=== PATIENT | female | born 1960 | race Two or more races ===

== ENCOUNTER → 2016-04-13 | Outpatient (CLI) | payer MEDICARE ==
[2016-04-13 12:51] LABS: Basophils % (A) 0 %; CH 29.3; CHCM 32.5; Eosinophils # (A) 0.2 k/uL (0-0.7); Eosinophils % (A) 3 %; HCT 37.8 % (34.0-46.0); HDW 2.84; HGB 11.9 gm/dL (11.4-16.0); Luc # (Auto) 0.08; Luc % (Auto) 1; Lymphocytes # (A) 1.7 k/uL (1.0-4.8); Lymphocytes % (A) 24 %; MCH 28.6 pg (25.0-35.0); MCHC 31.5 g/dL (31.0-37.0); MCV 90.6 fL (80.0-100.0); Mean Platelet Volume 7.2; Monocytes # (A) 0.4 k/uL (0-1.0); Monocytes % (A) 5 %; Neutrophils # (A) 4.6 k/uL (1.3-7.7); Neutrophils % (A) 66 %; RBC 4.17 m/uL (3.80-5.40); RDW 13.5 % (11.5-15.5); WBC 6.9 k/uL (3.8-10.6); WBC (Perox) 7.34
[2016-04-13 13:09] LABS: ALT 30 U/L (9-52); AST 23 U/L (14-36); Alkaline Phosphatase 75 U/L (38-126); Anion Gap 12 mmol/L; Blood Urea Nitrogen 14 mg/dL (7-17); Calcium 9.6 mg/dL (8.4-10.2); Carbon Dioxide 23 mmol/L (22-30); Chloride 109 mmol/L (98-107); Cholesterol 154 mg/dL (<200); Glucose 104 mg/dL (74-99); HDL Cholesterol 68 mg/dL (40-60); Non-African American GFR(MDRD) >60 (>60 ml/min/1.73 sqM); Potassium 4.4 mmol/L (3.5-5.1); Sodium 144 mmol/L (137-145); Total Bilirubin 0.6 mg/dL (0.2-1.3); Total Protein 7.1 g/dL (6.3-8.2); Triglycerides 142 mg/dL (<150)
[2016-04-13 14:30] LABS: Appearance,Urine Cloudy (Clear); Bacteria,Urine Rare /hpf; Bilirubin,Urine Negative (Negative); Glucose,Urine (UA) Negative (Negative); Ketones,Urine Negative (Negative); Leukocyte Esterase,Urine Moderate (Negative); Mucus,Urine Rare /hpf; Nitrite,Urine Negative (Negative); Particle Count 5381; Protein,Urine Negative (Negative); Squamous Epithelial Cell,Urine 2 /hpf (0-4); UA Billing (MACRO vs. MICRO) MICRO; Urobilinogen,Urine <2.0 mg/dL (<2.0); WBC,Urine 16 /hpf (0-5)
--- NOTE | 2016-04-16 10:56 | MM ---
Reason for exam: screening (asymptomatic). Last mammogram was performed 2 years and 7 months ago. History: Patient is postmenopausal. Benign left mammotome panel of the left breast, August 15, 2011. Benign right mammotome panel of the right breast, August 29, 2007. Physical Findings: A clinical breast exam by your physician is recommended on an annual basis and results should be correlated with mammographic findings. MG Screening Mammo w CAD Bilateral CC and MLO view(s) were taken. Prior study comparison: September 09, 2013, left breast MG work up mamm w CAD LT. August 26, 2013, bilateral MG screening mammo w CAD. July 25, 2011, bilateral digital screening mammo w/CAD. There are scattered fibroglandular densities. Previous mammotome biopsy in the right and left breast. There is chronic nodularity in the left breast. Nodular focal asymmetry right breast 9 o'clock subareolar position maybe new. ASSESSMENT: Incomplete: need additional imaging evaluation, BI-RAD 0 RECOMMENDATION: Special view mammogram of the right breast. If lesion persists on supplemental views, image directed ultrasound is recommended. [facility] will attempt to contact patient to return for supplemental views and ultrasound if indicated.
== END | disposition home or self-care (01) ==
LOC: RADMAMWWP 12:02
PROVIDERS: ATTEND Internal Medicine
DX: Z12.31 Encounter for screening mammogram for malignant neoplasm of breast (principal); E11.9 Type 2 diabetes mellitus without complications; E78.5 Hyperlipidemia, unspecified; I10 Essential (primary) hypertension; E55.9 Vitamin D deficiency, unspecified
CPT/HCPCS: 80061; 80053; 85025; 81001; 82306; 82043; 36415; G0202

== ENCOUNTER → 2016-04-20 | Outpatient (CLI) | payer MEDICARE ==
--- NOTE | 2016-04-23 06:54 | MM ---
Reason for exam: additional evaluation requested from abnormal screening. Last mammogram was performed less than 1 month ago. History: Patient is postmenopausal. Benign left mammotome panel of the left breast, August 15, 2011. Benign right mammotome panel of the right breast, August 29, 2007. Physical Findings: Nurse did not find any significant physical abnormalities on exam. MG Work Up Mamm w CAD RT LM, CC, and MLO view(s) were taken of the right breast. Prior study comparison: April 13, 2016, bilateral MG screening mammo w CAD. September 09, 2013, left breast MG work up mamm w CAD LT. Finding: There are typically benign round, grouped/clustered calcifications in the right breast, stable from 2014. Nodules does not definitively persist. These results were verbally communicated with the patient and result sheet given to the patient on 04/20/16. ASSESSMENT: Benign, BI-RAD 2 RECOMMENDATION: Return to routine screening mammogram schedule for both breasts.
== END | disposition home or self-care (01) ==
LOC: RADMAMWWP 14:15
PROVIDERS: ATTEND Internal Medicine
DX: R92.8 Other abnormal and inconclusive findings on diagnostic imaging of breast (principal)

== ENCOUNTER → 2016-09-11 | Outpatient (CLI) | payer MEDICARE ==
--- NOTE | 2016-09-14 13:21 | CONS ---
REASON FOR CONSULTATION: Sleep apnea. This 55-year-old female patient was diagnosed having obstructive sleep apnea back in [address] Marin. At that time, the patient had an AHI of 18. Her latest CPAP titration was in 2012 and at that time the patient was given a CPAP pressure of 13 cm of water. Note that the patient use to weigh 265 pounds back then. Unfortunately, the patient was unable to continue with her CPAP treatment. At one point, she became uncomfortable and she was not able to tolerate the treatment and she did not seek any further help and she ended up quitting her treatment. Recently, she has had several CVA's and this has resulted in significant right-sided weakness. She was advised by her neurologist to come in for a sleep apnea re-evaluation in concentration for treatment, if needed. She is snoring for now. She is waking up tired. She is having difficulties with memory and concentration and this can be potentially a complication of a stroke. She is not waking up gasping for air or choking. No grinding of the teeth. No anxiety or panic attacks at night-time. She goes to bed pretty late at 4 a.m. and she wakes up around 10 a.m. in the morning and she is averaging around 6 hours of sleep. She is not utilizing any form of CPAP therapy at this point. PAST MEDICAL HISTORY: 1. CVA x2 with right-sided weakness. 2. Diabetes mellitus. 3. GERD. 4. History of obesity with previous lap band insertion and removal. 5. Varicose vein. 6. Hyperlipidemia. 7. Obstructive sleep apnea, details discussed above. 8. Carotid artery disease, bilateral. Surgical history includes carotid endarterectomy x2 bilateral, hysterectomy, bladder sling surgery with ( ) cuff repair. Allergies are to PENICILLIN, CIPRO, AMOXICILLIN and BACTRIM. Outpatient medication list includes Victoza 1.2 mg q. day, aspirin 325 q. day, Plavix 75 q. day, metformin 1000 mg b.i.d., lisinopril 20 mg p.o. q. day, Zocor 80 mg p.o. q. day, Nuedexta 20/10 one tablet a day, pantoprazole 40 mg p.o. q. day. SOCIAL HISTORY: The patient is an ex-smoker. No history of alcohol and no history of IV drugs. FAMILY HISTORY: Negative for sleep apnea. REVIEW OF SYSTEMS: A 12-point review of systems was done and the positive points as mentioned above in the history of present illness. BP is 112/67, pulse 84, respirations 16, temperature is 98.0, saturation 99% on room air. Weight is 234, height is 73, and neck diameter is 14-1/2 inches. GENERAL APPEARANCE: Calm and comfortable. HEENT: Mallampati class 4. There is no goiter or neck masses. LUNGS: Clear to auscultation. Heart sounds are regular rate and rhythm, normal S1, S2, no S3, no murmurs. ABDOMEN: Soft, nontender, no organomegaly. EXTREMITIES: No edema, cyanosis or clubbing. NEUROLOGICALLY: There is obvious features on the right involving the right upper and right lower extremity and the patient is having difficulty with mobility and gait due to her previous stroke and right-sided weakness. IMPRESSION: 1. Obstructive sleep apnea. The patient is coming in for a re-evaluation. Original diagnosis was done in 2005 and the patient had an AHI of 18 and she failed CPAP therapy. Her latest hydration was done in 2012 and at that time the patient was given CPAP pressure of 11 cm of water. Since that time, the patient has lost approximately 30 pounds and she has had recurrent strokes. She will deserve a re-evaluation in regards to ongoing presence and severity of sleep apnea. This will also determine if she will need any further treatment. 2. Diabetes mellitus. 3. History of obesity, status post lap band insertion and removal. 4. Hyperlipidemia. 5. Carotid artery disease, bilateral, status post endarterectomy. PLAN: Will set up this patient for another screening polysomnogram. This will address the presence of any residual obstructive sleep apnea and the varices and based on that, will decide if further treatment is warranted. KEITH
== END | disposition home or self-care (01) ==
LOC: SLEEP 15:40
PROVIDERS: ATTEND Internal Medicine Critical Care Medicine
DX: G47.33 Obstructive sleep apnea (adult) (pediatric) (principal); E11.9 Type 2 diabetes mellitus without complications; E78.5 Hyperlipidemia, unspecified; I25.10 Atherosclerotic heart disease of native coronary artery without angina pectoris; I63.9 Cerebral infarction, unspecified; Z79.82 Long term (current) use of aspirin; Z79.02 Long term (current) use of antithrombotics/antiplatelets; Z79.899 Other long term (current) drug therapy; Z88.0 Allergy status to penicillin; Z88.1 Allergy status to other antibiotic agents; Z88.2 Allergy status to sulfonamides; Z98.890 Other specified postprocedural states
CPT/HCPCS: 99211

== ENCOUNTER → 2016-10-04 | Outpatient (CLI) | payer MEDICARE ==
[2016-10-04 13:24] VITALS: BMI 39.6
[2016-10-04 14:56] LABS: Basophils % (A) 0 %; CH 29.8; CHCM 32.8; Eosinophils # (A) 0.2 k/uL (0-0.7); Eosinophils % (A) 2 %; HCT 37.3 % (34.0-46.0); HDW 3.02; HGB 12.4 gm/dL (11.4-16.0); Luc # (Auto) 0.11; Luc % (Auto) 1; Lymphocytes # (A) 1.6 k/uL (1.0-4.8); Lymphocytes % (A) 16 %; MCH 30.3 pg (25.0-35.0); MCHC 33.1 g/dL (31.0-37.0); MCV 91.3 fL (80.0-100.0); Mean Platelet Volume 7.1; Monocytes # (A) 0.3 k/uL (0-1.0); Monocytes % (A) 3 %; Neutrophils # (A) 7.6 k/uL (1.3-7.7); Neutrophils % (A) 78 %; RBC 4.09 m/uL (3.80-5.40); WBC 9.7 k/uL (3.8-10.6); WBC (Perox) 9.96
[2016-10-04 15:00] LABS: ALT 28 U/L (9-52); AST 22 U/L (14-36); Alkaline Phosphatase 79 U/L (38-126); Anion Gap 10 mmol/L; Blood Urea Nitrogen 16 mg/dL (7-17); Calcium 9.4 mg/dL (8.4-10.2); Carbon Dioxide 25 mmol/L (22-30); Chloride 110 mmol/L (98-107); Cholesterol 148 mg/dL (<200); Glucose 96 mg/dL (74-99); HDL Cholesterol 63 mg/dL (40-60); Non-African American GFR(MDRD) >60 (>60 ml/min/1.73 sqM); Potassium 4.7 mmol/L (3.5-5.1); Sodium 145 mmol/L (137-145); Total Bilirubin 0.4 mg/dL (0.2-1.3); Total Protein 7.1 g/dL (6.3-8.2); Triglycerides 150 mg/dL (<150)
[2016-10-04 15:47] LABS: Hepatitis C Virus IgG Ab Negative (Negative); Hepatitis C Virus IgG Index 0.01
== END ==
LOC: MNTWWP 12:55
PROVIDERS: ATTEND Internal Medicine
DX: E66.01 Morbid (severe) obesity due to excess calories (principal); E78.5 Hyperlipidemia, unspecified; E55.9 Vitamin D deficiency, unspecified; I10 Essential (primary) hypertension; Z13.9 Encounter for screening, unspecified
CPT/HCPCS: 80053; 80061; 82306; 85025; 86803; 97802

== ENCOUNTER → 2017-06-10 | Outpatient (CLI) | payer MEDICARE ==
--- NOTE | 2017-06-10 14:53 | MR ---
Left wrist MRI HISTORY: Pain in left wrist Multiplanar multisequence imaging through the left wrist No plain film correlation Triangular fibrocartilage is thought to be intact, scapholunate, lunotriquetral ligaments are intact. Bone marrow signal is maintained. Flexor and extensor tendons are intact. There is fluid present along the extensor carpi ulnaris tendon, abnormal increased signal is present within the tendon, some local inflammatory change present in the soft tissues. IMPRESSION: Partial tear extensor carpi ulnar tendon.
== END | disposition home or self-care (01) ==
LOC: RADMRIMAIN 12:08
PROVIDERS: ATTEND Orthopaedic Surgery Hand Surgery
DX: S66.212A Strain of extensor muscle, fascia and tendon of left thumb at wrist and hand level, initial encounter (principal); M65.9 Synovitis and tenosynovitis, unspecified; M65.322 Trigger finger, left index finger; M65.332 Trigger finger, left middle finger; M19.90 Unspecified osteoarthritis, unspecified site; E11.9 Type 2 diabetes mellitus without complications; S93.492A Sprain of other ligament of left ankle, initial encounter; G56.03 Carpal tunnel syndrome, bilateral upper limbs

== ENCOUNTER → 2019-02-06 | Outpatient (CLI) | payer MEDICARE ==
--- NOTE | 2019-02-09 11:09 | MM ---
Reason for exam: screening (asymptomatic). Last mammogram was performed 2 years and 10 months ago. History: Patient is postmenopausal. Benign left mammotome panel of the left breast, August 15, 2011. Benign right mammotome panel of the right breast, August 29, 2007. Physical Findings: A clinical breast exam by your physician is recommended on an annual basis and results should be correlated with mammographic findings. MG 3D Screening Mammo W/Cad Bilateral CC, MLO, and XCCL view(s) were taken. Prior study comparison: April 20, 2016, right breast MG work up mamm w CAD RT. April 13, 2016, bilateral MG screening mammo w CAD. The breast tissue is heterogeneously dense. This may lower the sensitivity of mammography. Stable benign calcifications. There is no discrete abnormality. No significant changes when compared with prior studies. ASSESSMENT: Benign, BI-RAD 2 RECOMMENDATION: Routine screening mammogram of both breasts in 1 year.
== END | disposition home or self-care (01) ==
LOC: RADMAMWWP 14:43
PROVIDERS: ATTEND Internal Medicine
DX: Z12.31 Encounter for screening mammogram for malignant neoplasm of breast (principal)
CPT/HCPCS: 77063; 77067

== ENCOUNTER → 2022-02-09 | Outpatient (CLI) | payer MEDICARE ==
--- NOTE | 2022-02-09 13:10 | CT ---
EXAMINATION TYPE: CT angio neck DATE OF EXAM: 02/09/2022 HISTORY: Occlusion and stenosis carotid artery COMPARISON: 07/12/2015 CT DLP: 334.7 mGycm. Automated Exposure Control for Dose Reduction was Utilized. TECHNIQUE: CTA scan of the head and neck is performed with IV Contrast, patient injected with 65 mL of Isovue 370, axial images are obtained, coronal and sagittal reformatted images are reviewed. 3D re constructed images are created on an independent workstation and reviewed. FINDINGS: There is calcified plaque of the brachiocephalic origins but no significant stenosis. The left verteb ral artery is markedly dominant. The proximal right vertebral artery is nonvisualized the mid to dist al right vertebral artery is diminutive in caliber. There is a severe, greater than 75% stenosis of the origin of the left internal carotid artery. Left common carotid artery is widely patent. This is unchanged compared to previous. The right common and internal carotid arteries are without significant stenosis. The previously descr ibed stenosis and calcified plaque of the proximal right internal carotid artery has resolved presuma tricia secondary to surgical carotid endarterectomy. Impression: 1. Persistent severe proximal left internal carotid artery stenosis, greater than 75%. 2. No significant stenosis of the proximal right internal carotid artery post endarterectomy. 3. No significant stenosis of the brachiocephalic origins. 4. Nonvisualization of the proximal right vertebral artery. The right mid and distal vertebral artery is diminutive in size. The left vertebral artery is dominant. NASCET criteria was used in interpretation of this exam?
== END | disposition home or self-care (01) ==
LOC: RADCTMAIN 09:15
PROVIDERS: ATTEND Surgery
DX: I65.22 Occlusion and stenosis of left carotid artery (principal)
CPT/HCPCS: 82565; 84520; 70498; 36415; Q9967

== ENCOUNTER 2022-05-17 08:04 | Inpatient (IN) | payer MEDICARE, OTHER ==
[2022-05-11 16:00] VITALS: BMI 37.7
[~2022-05-17 08:04] MED LIST: ALPRAZolam 0.25 MG TAB PO PRN; ALPRAZolam 0.5 MG TAB PO PRN; ASPIRIN 325 MG TAB PO PRN; ASPIRIN 81 MG PO PRN; CLOPIDOGREL 75 MG TAB PO PRN; HYDROmorphone 0.5 MG/0.5 ML SYRINGE IVP PRN; LACTATED RINGERS 1,000 ML IV SCH; LIDOCAINE 1% (10MG/ML) FOR IV START INTRADERMA PRN; NITROGLYCERIN SL TABS 0.4 MG TAB SUBLINGUAL PRN; SODIUM CHLORIDE 0.9% 1,000 ML in EMPTY BAG 1 BAG IV ONE; ceFAZolin 2 GM in SODIUM CHLORIDE 0.9% 500 ML 500 ML IRRIGATION PRN
[2022-05-17 08:36] LABS: Glucose,Whole Blood 125 mg/dL (70-110)
[2022-05-17 08:58] LABS: Basophils % (A) 1 %; Eosinophils # (A) 0.2 k/uL (0-0.7); Eosinophils % (A) 3 %; HCT 35.6 % (34.0-46.0); HGB 11.3 gm/dL (11.4-16.0); Lymphocytes % (A) 29 %; MCH 26.7 pg (25.0-35.0); MCHC 31.8 g/dL (31.0-37.0); MCV 84.1 fL (80.0-100.0); Mean Platelet Volume 6.8; Monocytes # (A) 0.3 k/uL (0-1.0); Monocytes % (A) 4 %; Neutrophils # (A) 4.1 k/uL (1.3-7.7); Neutrophils % (A) 61 %; Platelet Count 401 k/uL (150-450); RBC 4.23 m/uL (3.80-5.40); RDW 15.2 % (11.5-15.5); WBC 6.8 k/uL (3.8-10.6)
[2022-05-17] MEDS ORDERED: RX INFO: IV CONTRAST WAS GIVEN 1 EACH MISC MISCELLANE PRN (09:00)
[2022-05-17 09:13] LABS: Calcium 9.5 mg/dL (8.4-10.2)
--- NOTE | 2022-05-17 09:29 | P.ANPRN ---
Procedure Note - Anesthesia - Invasive Line Left Arterial Line Time Out Performed: Yes ([id number]) Date of Procedure: 05/17/22 Time of Procedure: 08:46 Location of Patient: CVL Preparation: Sterile Prep, Sterile Dressing Arterial Line Location: Radial (left) Ultrasound Used: No Purpose - Visualization and Identification of Vasculature: No Needle Guage: 20g Image Stored and Saved: No Narrative: Central line placement per sterile protocol utilized.
[2022-05-17] MEDS ORDERED: NITROGLYCERIN-D5W PMX 50 MG in DEXTROSE/WATER 1 250ML.BAG IV ONE (09:30)
[2022-05-17] MEDS ORDERED: DEXMEDETOMIDINE/0.9% NACL(PMX) 400 MCG in EMPTY BAG 1 BAG IV ONE (09:30)
[2022-05-17] MEDS ORDERED: GLYCOPYRROLATE 0.2 MG/ML 2 ML VIAL ONE (09:42)
[2022-05-17] MEDS ORDERED: PROTAMINE SULFATE 10 MG/ML 5 ML VIAL IV ONE (09:42)
[2022-05-17] MEDS ORDERED: DEXMEDETOMIDINE 200 MCG/2 ML VIAL IV ONE (09:42)
[2022-05-17] MEDS ORDERED: HEPARIN SODIUM,PORCINE 10,000 UNIT/ML 1 ML VIAL ONE (09:42)
[2022-05-17] MEDS ORDERED: fentaNYL (PF) 50 MCG/ML 2 ML AMP ONE (09:42)
[2022-05-17] MEDS: LIDOCAINE 1% INJ 10MG/ML (30 ML VIAL-PF) SQ ONE ×2 (10:08→10:45)
[2022-05-17] MEDS ORDERED: IOPAMIDOL-370 100ML BTL INJ ONE (11:25)
--- NOTE | 2022-05-17 11:43 | P.HPIHPCON ---
History of Present Illness H&P Date: 05/17/22 Akiko is a [age] female with previous bilateral carotid endarterectomies who presented to the office with findings of recurrent high-grade stenosis of her left internal carotid artery. She had had previous strokelike symptoms and findings of High-grade stenosis on ultrasound therefore she was offered a trans-carotid artery revascularization. Consent for Procedure: I have explained the operation/procedure to the patient, including the risks, benefits, side effects, alternative therapies (including not receiving the proposed treatment or service), the likelihood of the patient achieving his/her goals, and potential recuperation problems for the procedure/sedation/analgesia, as well as any blood products, if indicated. I also explained to the patient the risks, benefits and side effects of the alternatives, as well as the risks related to not receiving the proposed procedure, care, treatment, or services. Past Medical History Past Medical History: CVA/TIA, Diabetes Mellitus, GERD/Reflux, Hyperlipidemia, Hypertension Additional Past Medical History / Comment(s): CVA x2(2009,2014)-weakness rt side,2009 CVA post Carotid surgery History of Any Multi-Drug Resistant Organisms: None Reported Past Surgical History: Orthopedic Surgery Additional Past Surgical History / Comment(s): partial hysterectomy, surgery on both carotid arteries the right done in july at [place],2nd digit rt foot surgery,rt shoulder rot cuff,ganglion cyst removed Past Anesthesia/Blood Transfusion Reactions: No Reported Reaction Additional Past Anesthesia/Blood Transfusion Reaction / Comment(s): no hx blood transfusion Smoking Status: Former smoker - Past Family History Brother(s) Family Medical History: CVA/TIA, Myocardial Infarction ([place]) Additional Family Medical History / Comment(s): CABG Sister(s) Family Medical History: Myocardial Infarction ([place]) Father Family Medical History: Cancer Additional Family Medical History / Comment(s): colon Medications and Allergies Home Medications Medication Instructions Recorded Confirmed Type Aspirin 81 mg PO DAILY 10/31/15 05/17/22 History Cholecalciferol [Vitamin D3] 100 mcg PO DAILY 10/31/15 05/17/22 History Clopidogrel [Plavix] 75 mg PO HS 10/31/15 05/17/22 History Pantoprazole [Protonix] 40 mg PO BID 10/31/15 05/17/22 History metFORMIN HCL [Glucophage] 500 mg PO HS 10/31/15 05/17/22 History Black Cohosh Root [Black Cohosh] 200 mg PO HS 05/11/22 05/17/22 History Pravastatin Sodium [Pravachol] 40 mg PO HS 05/11/22 05/17/22 History Semaglutide [Ozempic] 0.5 mg SQ Q7D 05/11/22 05/17/22 History Venlafaxine HCl ER [Effexor Xr] 150 mg PO DAILY 05/11/22 05/17/22 History lisinopriL [Zestril] 10 mg PO DAILY 05/11/22 05/17/22 History Allergies Allergy/AdvReac Type Severity Reaction Status Date / Time amoxicillin Allergy Rash/Hives Verified 05/11/22 15:42 ciprofloxacin [From Cipro] Allergy Swelling Verified 05/11/22 15:42 hands and feet ciprofloxacin HCl Allergy Swelling Verified 05/11/22 15:42 [From Cipro] hands and feet Penicillins Allergy Rash/Hives Verified 05/11/22 15:42 Surgical - Exam Vital Signs Temp Pulse Resp BP Pulse Ox 98.8 F 86 16 165/79 96 05/17/22 08:38 05/17/22 08:38 05/17/22 08:38 05/17/22 08:38 05/17/22 08:38 Genitals a pleasant cooperative female in no acute distress. Bilateral neck incisions well healed, elongated on the left down to just about level of the clavicle. Mild right upper extremity weakness. Normal mood and affect. Results - Labs 05/17/22 08:30 05/17/22 08:30 Abnormal Lab Results - Last 24 Hours (Table) 05/17/22 05/17/22 05/17/22 Range/Units 08:30 08:30 08:31 Hgb 11.3 L (11.4-16.0) gm/dL Glucose 126 H (74-99) mg/dL POC Glucose (mg/dL) 125 H (70-110) mg/dL Diabetes panel 05/17/22 Range/Units 08:30 Sodium 142 (137-145) mmol/L Potassium 4.0 (3.5-5.1) mmol/L Chloride 106 (98-107) mmol/L Carbon Dioxide 28 (22-30) mmol/L BUN 11 (7-17) mg/dL Creatinine 0.93 (0.52-1.04) mg/dL Glucose 126 H (74-99) mg/dL Calcium 9.5 (8.4-10.2) mg/dL Calcium panel 05/17/22 Range/Units 08:30 Calcium 9.5 (8.4-10.2) mg/dL Pituitary panel 05/17/22 Range/Units 08:30 Sodium 142 (137-145) mmol/L Potassium 4.0 (3.5-5.1) mmol/L Chloride 106 (98-107) mmol/L Carbon Dioxide 28 (22-30) mmol/L BUN 11 (7-17) mg/dL Creatinine 0.93 (0.52-1.04) mg/dL Glucose 126 H (74-99) mg/dL Calcium 9.5 (8.4-10.2) mg/dL Adrenal panel 05/17/22 Range/Units 08:30 Sodium 142 (137-145) mmol/L Potassium 4.0 (3.5-5.1) mmol/L Chloride 106 (98-107) mmol/L Carbon Dioxide 28 (22-30) mmol/L BUN 11 (7-17) mg/dL Creatinine 0.93 (0.52-1.04) mg/dL Glucose 126 H (74-99) mg/dL Calcium 9.5 (8.4-10.2) mg/dL Assessment and Plan Assessment: High-grade recurrent left internal carotid artery stenosis Plan: Plan today for left trans-carotid artery revascularization and stent. Risks and benefits discussed. Patient and family understood and willing to proceed.
[2022-05-17] MEDS ORDERED: MAG HYDROX/AL HYDROX/SIMETH 30 ML CUP PO PRN (11:46)
[2022-05-17] MEDS ORDERED: ATROPINE SULFATE 0.1 MG/ML 10ML SYRINGE IV PRN (11:46)
--- NOTE | 2022-05-17 11:46 | P.OP ---
Date of Procedure: 05/17/22 Description of Procedure: Preoperative diagnosis: Recurrent left internal carotid artery stenosis Postoperative diagnosis: Same Procedure: LeftTranscarotid artery revascularization with stenting. Right common femoral vein central venous catheter placement under ultrasound guidance Surgeon: Izzy Erazo DO Corporate Specialist: Pradip Tomlinson Anesthesia: Conscious sedation Complications: None Condition: Stable Flow reversal time: 9 minutes Lesion length: 1.5 cm Indication for procedure: Patient is a 61-year-old female with a previous bilateral internal carotid artery stenosis and carotid endarterectomies. She presents for recurrent carotid artery stenosis of 90%. Operative narrative: After written and informed consent was obtained the patient all risks benefits and competitions were described the patient was brought to the [employer] and laid in a supine position. The area of the neck and groins were prepped and draped in usual sterile fashion after appropriate anesthetic was performed per the anesthesiologist. A timeout was performed in normal fashion and antibiotics were administered prior to incision. Utilizing ultrasound the left common carotid artery was located and a transverse incision was created overlying this area after proper anesthetization. Dissection was carried between the sternocleidomastoid musculature down to the carotid sheath. The sheath was then incised and the common carotid artery was located and dissected free in a circumferential manner and controlled with umbilical tape. Once controlled, attention was placed down to the common femoral vein and utilizing ultrasound the vein was cannulated and the 8-Italian sheath was placed in normal fashion. Attention was then placed back to the carotid artery and the patient was administered heparin and followed with ACTs and redosed as needed for ACT above 250. A pursestring suture was then placed at the common carotid artery with 5-0 Prolene and utilizing a micropuncture needle the common carotid artery was accessed and wire was placed followed by a 4-Italian sheath. Carotid angiogram was then obtained demonstrating significant stenosis in the internal carotid artery. Stiff wire was then placed followed by the 8 Italian Silkroad sheath. Flow reversal was then established with the enroute DEHYDRATION UNIT OPERATOR system after patient's blood pressure was increased to above 160, heart rate above 60 and ACT above 250. 014 wire was then placed across the lesion followed by a 6 x 30 mm Kim balloon and balloon angioplasty was performed followed by an 10 x 30 mm Silkroad stent. Postdilatation was not performed and final angiogram was obtained demonstrating complete resolution of the stenosis. All guidewires and catheters were removed and the sheath was removed and the arteriotomy was secured with the previously placed pursestring suture. Hemostasis was assured with Gelfoam and thrombin. The area was irrigated and closed. The platysma was closed with 3-0 Vicryl. The skin was closed with running 4-0 Monocryl in subcuticular fashionThe femoral sheath was also removed and pressure was held for hemostasis. The patient all procedure well and was moving all extremities and following commands. The patient was then sent to PACU for recovery.
[2022-05-17] MEDS ORDERED: HYDROcodone/APAP 5-325MG 1 EACH TAB PO PRN (11:47)
--- NOTE | 2022-05-17 12:18 | IR ---
EXAMINATION TYPE: IR stent intravas non coronary DATE OF EXAM: 05/17/2022 COMPARISON: NONE HISTORY: Fluoroscopy time. Fluoroscopy was provided to the referring clinician.
[2022-05-17 12:43] LABS: Glucose,Whole Blood 154 mg/dL (70-110)
[2022-05-17] MEDS: PHENYLEPHRINE 40 MG in SODIUM CHLORIDE 0.9% 250 ML IV SCH (12:55)
[2022-05-17 18:52] LABS: Glucose,Whole Blood 94 mg/dL (70-110)
[2022-05-17] MEDS: SODIUM CHLORIDE 0.9% 1,000 ML IV SCH (18:54)
[2022-05-17] MEDS: ASPIRIN 81 MG PO SCH (18:56)
[2022-05-17] MEDS: CLOPIDOGREL 75 MG TAB PO SCH (18:56)
[2022-05-17] MEDS ORDERED: ATORVASTATIN 40 MG TAB PO SCH (21:00)
[2022-05-18] MEDS: ACETAMINOPHEN TAB 325 MG TAB PO PRN ×2 (00:26→10:51)
[2022-05-18] MEDS: SODIUM CHLORIDE 0.9% 1,000 ML IV SCH (02:00)
[2022-05-18] MEDS: PHENYLEPHRINE 40 MG in SODIUM CHLORIDE 0.9% 250 ML IV SCH (05:08)
[2022-05-18 05:23] LABS: Glucose,Whole Blood 122 mg/dL (70-110)
[2022-05-18 05:42] LABS: Basophils % (A) 0 %; Eosinophils # (A) 0.2 k/uL (0-0.7); Eosinophils % (A) 3 %; HCT 30.4 % (34.0-46.0); Hypochromasia Slight; Lymphocytes # (A) 1.9 k/uL (1.0-4.8); Lymphocytes % (A) 26 %; MCH 26.4 pg (25.0-35.0); MCHC 31.1 g/dL (31.0-37.0); MCV 84.8 fL (80.0-100.0); Mean Platelet Volume 7.7; Monocytes # (A) 0.3 k/uL (0-1.0); Monocytes % (A) 5 %; Neutrophils # (A) 4.5 k/uL (1.3-7.7); Neutrophils % (A) 65 %; Platelet Count 322 k/uL (150-450); RBC 3.58 m/uL (3.80-5.40); RDW 15.2 % (11.5-15.5)
[2022-05-18 05:56] LABS: African American GFR (CKD) >90 (>60 ml/min/1.73 sqM); Anion Gap 3 mmol/L; Blood Urea Nitrogen 9 mg/dL (7-17); Calcium 8.4 mg/dL (8.4-10.2); Carbon Dioxide 27 mmol/L (22-30); Chloride 108 mmol/L (98-107); Glucose 116 mg/dL (74-99); Non-African American GFR(CKD) 84 (>60 ml/min/1.73 sqM); Potassium 3.9 mmol/L (3.5-5.1); Sodium 138 mmol/L (137-145)
[2022-05-18 06:05] LABS: HGB 9.4 gm/dL (11.4-16.0)
[2022-05-18] MEDS: ASPIRIN 81 MG PO SCH (08:57)
[2022-05-18] MEDS: CLOPIDOGREL 75 MG TAB PO SCH (08:57)
--- NOTE | 2022-05-18 10:54 | P.DS ---
Providers Date of admission: 05/17/22 08:04 Expected date of discharge: 05/18/22 Attending physician: Izzy Erazo DO Consults: 05/17/22 14:20 Consult Physician Routine Consulting Provider: Ventura Aponte Consult Reason/Comments: post op carotid stent Do you want consulting provider notified?: Yes Primary care physician: [place] Hospital Course: Pleasant 61-year-old female with previous bilateral carotid endarterectomies with new findings of recurrent high-grade stenosis of left internal carotid artery was scheduled yesterday for a trans-carotid artery revascularization. Patient is postop day #1. She was admitted to the ICU for discrepancy in her blood pressure between her arterial line and cough. Patient was having some hypotension and was started on aftab-synephrine through the night. It was discontinued this morning at 5:30. Blood pressures have been stable this morning. She's been up and ambulating to the bathroom, pointing without difficulty. She is tolerating regular diet. Denies any focal deficits. She's been afebrile. Plan is for discharge home. General appearance: The patient is alert, oriented, appears in no acute distress. HET: Head is normocephalic and atraumatic. Pupils are equal and reactive. Neck: Supple without lymphadenopathy. Trachea midline. Left incision site with dressing clean dry and intact. No swelling or ecchymosis. Heart: Regular. Lungs: Equal expansion, normal respiratory effort. Abdomen: Soft, nontender, nondistended. Extremities: Normal skin color and turgor. No cyanosis, rash, ulceration, club almita, or edema. Palpable bilateral carotid pulses. Neurological: No focal deficits. Strength and sensation are grossly intact. Plan Discontinue arterial line Increase ambulation Patient is cleared from vascular surgery for discharge. Follow-up with Dr. Erazo in 2 weeks. The impression and plan of care has been dictated as directed. Dr. Loyd I performed a history and examination of this patient, discussed the same with the dictator. I agree with the dictator's note ,documented as a scribe. Any additional findings or plans will be noted. Procedures: Procedure: LeftTranscarotid artery revascularization with stenting. Right common femoral vein central venous catheter placement under ultrasound guidance Patient Condition at Discharge: Stable Plan - Discharge Summary Discharge Rx Participant: No New Discharge Prescriptions: New Acetaminophen Tab [Tylenol] 650 mg PO Q6HR PRN tab PRN Reason: Fever And/ Or Pain Atorvastatin [Lipitor] 40 mg PO HS #90 tab Continue Cholecalciferol [Vitamin D3 (10 Mcg = 400 Iu)] 100 mcg PO DAILY metFORMIN HCL [Glucophage] 500 mg PO HS Aspirin 81 mg PO DAILY Clopidogrel [Plavix] 75 mg PO HS Pantoprazole [Protonix] 40 mg PO BID Black Cohosh Root [Black Cohosh] 200 mg PO HS lisinopriL [Zestril] 10 mg PO DAILY Semaglutide [Ozempic] 0.5 mg SQ Q7D Venlafaxine HCl ER [Effexor XR] 150 mg PO DAILY Pravastatin Sodium [Pravachol] 40 mg PO HS Discharge Medication List Aspirin 81 mg PO DAILY 10/31/15 [History] Cholecalciferol [Vitamin D3 (10 Mcg = 400 Iu)] 100 mcg PO DAILY 10/31/15 [History] Clopidogrel [Plavix] 75 mg PO HS 10/31/15 [History] Pantoprazole [Protonix] 40 mg PO BID 10/31/15 [History] metFORMIN HCL [Glucophage] 500 mg PO HS 10/31/15 [History] Black Cohosh Root [Black Cohosh] 200 mg PO HS 05/11/22 [History] Pravastatin Sodium [Pravachol] 40 mg PO HS 05/11/22 [History] Semaglutide [Ozempic] 0.5 mg SQ Q7D 05/11/22 [History] Venlafaxine HCl ER [Effexor XR] 150 mg PO DAILY 05/11/22 [History] lisinopriL [Zestril] 10 mg PO DAILY 05/11/22 [History] Acetaminophen Tab [Tylenol] 650 mg PO Q6HR PRN tab 05/18/22 [Rx] Atorvastatin [Lipitor] 40 mg PO HS #90 tab 05/18/22 [Rx] Follow up Appointment(s)/Referral(s): Izzy Erazo DO [STAFF PHYSICIAN] - 2 Weeks Patient Instructions/Handouts: Carotid Artery Stent Placement (DC) Activity/Diet/Wound Care/Special Instructions: No strenuous activity or heavy lifting greater than 10 pounds. May shower tomorrow but no tub bathing or soaking. Watch incision site for infection including redness, drainage, or temperature greater than 100.4. If you notice he symptoms please call office Discharge Disposition: HOME SELF-CARE
[2022-05-18 11:57] LABS: Glucose,Whole Blood 121 mg/dL (70-110)
[2022-05-18 11:59] VITALS: TEMP 98
[2022-05-18 12:06] VITALS: BP 126/75; PULSE 86; RESP 17
== END 2022-05-18 13:10 | disposition home or self-care (01) | DRG 35 ==
LOC: 2ORMAIN 08:04 → 2SICU 18:08
PROVIDERS: ADMIT Surgery; ATTEND Surgery
PROC: 037J3DZ Dilation of Left Common Carotid Artery with Intraluminal Device, Percutaneous Approach (ICD-10-PCS; 2022-05-17)
PROC: X2AJ336 Cerebral Embolic Filtration, Extracorporeal Flow Reversal Circuit from Left Common Carotid Artery, Percutaneous Approach, New Technology Group 6 (ICD-10-PCS; 2022-05-17)
PROC: 06HM33Z Insertion of Infusion Device into Right Femoral Vein, Percutaneous Approach (ICD-10-PCS; 2022-05-17)
PROC: B54BZZA Ultrasonography of Right Lower Extremity Veins, Guidance (ICD-10-PCS; 2022-05-17)
PROC: B3141ZZ Fluoroscopy of Left Common Carotid Artery using Low Osmolar Contrast (ICD-10-PCS; principal; 2022-05-17 09:30)
DX: I65.22 Occlusion and stenosis of left carotid artery (principal); I69.351 Hemiplegia and hemiparesis following cerebral infarction affecting right dominant side; E11.9 Type 2 diabetes mellitus without complications; E78.5 Hyperlipidemia, unspecified; I10 Essential (primary) hypertension; K21.9 Gastro-esophageal reflux disease without esophagitis; Z88.1 Allergy status to other antibiotic agents; Z88.0 Allergy status to penicillin; Z87.891 Personal history of nicotine dependence; Z79.84 Long term (current) use of oral hypoglycemic drugs; Z79.899 Other long term (current) drug therapy; Z79.82 Long term (current) use of aspirin
CPT/HCPCS: 37215; 80048; 85025

== ENCOUNTER → 2023-01-18 | Outpatient (CLI) | payer MEDICARE ==
--- NOTE | 2023-01-18 16:09 | MR ---
EXAMINATION TYPE: MR lumbar spine wo con DATE OF EXAM: 01/18/2023 COMPARISON: HISTORY: Lumbar pain into rt leg CONTRAST: 0 mL intravenous . TECHNIQUE: Multiplanar, multisequence images of the lumbar spine were acquired. FINDINGS: L5-S1: The sagittal plane there is a suggestion of some minimal disc bulge L5-S1. Extensive the epidu ral space without thecal sac compression or spinal canal stenosis. No spinal canal stenosis. No for aminal stenosis. L4-L5: No significant disc bulge or disc herniation. No spinal canal stenosis. No foraminal stenosi s. Facet hypertrophy and ligamentum flavum laxity has mild posterior lateral thecal sac compression. L3-L4: No significant disc bulge or disc herniation. No spinal canal stenosis. No foraminal stenosi s. L2-L3: No significant disc bulge or disc herniation. No spinal canal stenosis. No foraminal stenosi s. L1-L2: No significant disc bulge or disc herniation. No spinal canal stenosis. No foraminal stenosi s. T12-L1: No significant disc bulge or disc herniation. No spinal canal stenosis. No foraminal stenos is. IMPRESSION: 1. Mild disc bulge L5-S1. 2. Ligamentum flavum laxity and facet hypertrophy L4-5 with mild posterior lateral thecal sac sushil antonio
== END | disposition home or self-care (01) ==
LOC: RADMRIMAIN 10:56
PROVIDERS: ATTEND Orthopaedic Surgery
DX: M51.37 Other intervertebral disc degeneration, lumbosacral region (principal); M47.816 Spondylosis without myelopathy or radiculopathy, lumbar region; M24.28 Disorder of ligament, vertebrae
CPT/HCPCS: 72148

== ENCOUNTER → 2023-06-27 | Outpatient (CLI) | payer MEDICARE ==
[2023-06-27 15:04] VITALS: BP 125/85; PULSE 90; RESP 16
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
== END ==
LOC: PNWHC3 11:10
PROVIDERS: ATTEND Specialist
DX: M51.16 Intervertebral disc disorders with radiculopathy, lumbar region (principal); M47.26 Other spondylosis with radiculopathy, lumbar region; M19.90 Unspecified osteoarthritis, unspecified site; Z87.891 Personal history of nicotine dependence; Z88.1 Allergy status to other antibiotic agents; Z88.0 Allergy status to penicillin
CPT/HCPCS: 99211

== ENCOUNTER → 2023-07-16 | Outpatient (CLI) | payer MEDICARE ==
[2023-07-16 20:57] LABS: ALT 24 U/L (8-44); AST 33 U/L (13-35); Albumin 4.3 g/dL (3.8-4.9); Albumin/Globulin Ratio 1.48 Ratio (1.60-3.17); Alkaline Phosphatase 85 U/L (41-126); Blood Urea Nitrogen 8.4 mg/dL (9.0-27.0); Calcium 9.9 mg/dL (8.7-10.3); Carbon Dioxide 22.5 mmol/L (21.6-31.8); Chloride 100 mmol/L (96-109); Globulin 2.9 g/dL (1.6-3.3); Glucose 119 mg/dL (70-110); Potassium 4.4 mmol/L (3.5-5.5); Sodium 140 mmol/L (135-145); Total Bilirubin 0.3 mg/dL (0.3-1.2); Total Protein 7.2 g/dL (6.2-8.2)
[2023-07-16 21:46] LABS: Basophils # (A) 0.06 X 10*3/uL (0.00-0.10); Basophils % (A) 0.6 %; Eosinophils # (A) 0.21 X 10*3/uL (0.04-0.35); HCT 38.6 % (37.2-46.3); HGB 11.4 g/dL (12.0-15.0); Lymphocytes % (A) 22.2 %; MCH 25.4 pg (27.0-32.0); MCHC 29.5 g/dL (32.0-37.0); MCV 86.2 FL (80.0-97.0); Mean Platelet Volume 9.9 FL (9.5-12.2); Monocytes # (A) 0.41 X 10*3/uL (0.20-1.00); NRBC Per 100 WBC 0 X 10*3/uL (0.00-0.01); Neutrophils # (A) 7.33 X 10*3/uL (1.80-7.70); Neutrophils % (A) 70.9 %; Platelet Count 407 X 10*3/uL (140-440); RBC 4.48 X 10*6/uL (4.10-5.20); RDW 15.4 % (11.5-14.5); WBC 10.34 X 10*3/uL (4.50-10.00)
== END | disposition home or self-care (01) ==
LOC: LABWHC1 13:04
PROVIDERS: ATTEND Internal Medicine Gastroenterology
DX: R74.01 Elevation of levels of liver transaminase levels (principal)
CPT/HCPCS: 36415; 80053; 81596; 85025

== ENCOUNTER → 2023-07-16 | Day surgery (SDC) | payer MEDICARE ==
[2023-07-12 18:21] VITALS: BMI 37.9
[~2023-07-16] MED LIST changes: -ALPRAZolam 0.25 MG TAB PO PRN; -ALPRAZolam 0.5 MG TAB PO PRN; -ASPIRIN 325 MG TAB PO PRN; -ASPIRIN 81 MG PO PRN; -CLOPIDOGREL 75 MG TAB PO PRN; -HYDROmorphone 0.5 MG/0.5 ML SYRINGE IVP PRN; +IOPAMIDOL M200 10 ML VIAL ONE; -LIDOCAINE 1% (10MG/ML) FOR IV START INTRADERMA PRN; -NITROGLYCERIN SL TABS 0.4 MG TAB SUBLINGUAL PRN; -SODIUM CHLORIDE 0.9% 1,000 ML in EMPTY BAG 1 BAG IV ONE; -ceFAZolin 2 GM in SODIUM CHLORIDE 0.9% 500 ML 500 ML IRRIGATION PRN; +methylPREDNISolone ACETATE 40 MG/ML 1 ML VIAL ONE
[2023-07-16 11:37] LABS: Glucose,Whole Blood 124 mg/dL (70-110)
[2023-07-16 11:50] VITALS: RESP 16; TEMP 96.9
--- NOTE | 2023-07-16 12:16 | P.PCN ---
Date of Procedure: 07/16/23 Procedure(s) Performed: PREOPERATIVE DIAGNOSIS: 1-Lumbar radiculopathy . 2-lumbar degenerative disc disease. 3-lumbar spondylosis with lumbar facet arthropathy without myelopathy POSTOPERATIVE DIAGNOSIS: 1-lumbar radiculopathy. 2-lumbar degenerative disc disease. 3-lumbar spondylosis with facet arthropathy without myelopathy PROCEDURE 1. Transforaminal epidural steroid injection under fluoroscopic guidance at right L4-5 level. (Fluoroscopy images stored on file in the radiology Department ) 2. Lumbar epidurogram . ANESTHESIA: Local with 1% lidocaine 3 ml. EBL: Minimal PROCEDURE INDICATION: The patient with low back pain and radiculopathy symptoms unresponsive to conservative treatment. PROCEDURE DESCRIPTION / TECHNIQUE: The patient was seen and identified in the preoperative area. Risks, benefits, complications, and alternatives were discussed with the patient. The patient agreed to proceed with the procedure and signed the consent. IV was started, and vital signs were stable. Patient was taken to the OR and time out was completed. The patient was placed in the prone position on procedure table and a pillow was placed under the abdomen to reduce lumbar lordosis. The lumbosacral area was prepped and draped in the usual sterile fashion. Critical pause was taken. Vital signs were closely monitored during the procedure. Using oblique fluoroscopy, the chin of the ``Obng dog at Right L4-5 level was identified, and the skin and deeper tissues just below was localized with 1% lidocaine. Subsequently, a 22-gauge 5-inch spinal needle was advanced under a tunneled view fluoroscopic guidance just underneath the chin of the ``Bong dog at the right L4-5 Under lateral fluoroscopy, the needle was then advanced to the posterior border of the interforaminal space. After negative aspiration of CSF and blood and with no paresthesias, 1 mL Isovue 200 contrast dye was injected excellent epidurogram and outlining of the nerve root Subsequently, 3 mL of block solution containing 40 mg Depo-Medrol and 2 mL of 0.9% normal saline PF was injected. Needle was removed . At the end of the procedure, skin was cleansed, and bandages were applied. COMPLICATIONS:none DISPOSITION / PLANS: The patient was placed in a supine position and transferred to the recovery area in a stable condition for observation. There was no evidence of lower extremity motor or sensory deficit after the procedure. Patient was discharged from the recovery room after meeting discharge criteria. Home discharge instructions were given to the patient by the staff. The patient was reexamined prior to discharge.
--- NOTE | 2023-07-16 12:29 | FL ---
EXAMINATION TYPE: FL guided pain mgmt statistic Intraoperative/procedural fluoroscopic services were provided. Total fluoroscopy time is 3.4 seconds with a total of 1 submitted images to PACS. Please se e the operative/procedural note for further details. DAP: [id number] mGym2
[2023-07-16 12:35] VITALS: BP 123/79; PULSE 83
== END | disposition home or self-care (01) ==
LOC: ORPAIN 10:59
PROVIDERS: ATTEND Specialist
DX: M51.16 Intervertebral disc disorders with radiculopathy, lumbar region (principal); M47.26 Other spondylosis with radiculopathy, lumbar region; E11.9 Type 2 diabetes mellitus without complications; Z88.0 Allergy status to penicillin; Z88.1 Allergy status to other antibiotic agents; Z79.82 Long term (current) use of aspirin; Z79.02 Long term (current) use of antithrombotics/antiplatelets; Z79.84 Long term (current) use of oral hypoglycemic drugs; Z86.73 Personal history of transient ischemic attack (TIA), and cerebral infarction without residual deficits; Z79.899 Other long term (current) drug therapy
CPT/HCPCS: 64483; Q9966; J1010

== ENCOUNTER → 2023-07-31 | Outpatient (CLI) | payer MEDICARE ==
[2023-07-31 11:50] VITALS: BP 142/86; PULSE 89; RESP 15; TEMP 97.5
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
== END ==
LOC: PNWHC3 10:57
PROVIDERS: ATTEND Specialist
DX: M51.36 Other intervertebral disc degeneration, lumbar region (principal); Z88.1 Allergy status to other antibiotic agents; Z88.0 Allergy status to penicillin; Z87.891 Personal history of nicotine dependence
CPT/HCPCS: 99211

== ENCOUNTER → 2023-10-21 | Outpatient (CLI) | payer MEDICARE | LOC: PNWHC3 14:42 | PROVIDERS: ATTEND Anesthesiology | DX: M54.16 Radiculopathy, lumbar region | CPT/HCPCS: 99211 ==

== ENCOUNTER 2023-11-07 12:08 | Day surgery (SDC) | payer MEDICARE ==
[2023-11-07] MEDS ORDERED: ROPIVACAINE 5MG/ML 20ML VIAL ONE (13:55)
[2023-11-07] MEDS ORDERED: IOPAMIDOL M300 15ML VIAL ONE (13:55)
[2023-11-07] MEDS ORDERED: DEXAMETHASONE SOD PHOSPHATE 10 MG/ML 1 ML VIAL ONE (13:55)
--- NOTE | 2023-12-17 18:19 | FL ---
EXAMINATION TYPE: FL guided pain mgmt statistic DATE OF EXAM: 11/14/2023 3:16 PM COMPARISON: Pre Operative Images if available both CT/MRI or plain film CLINICAL INDICATION: Female, 63 years old with history of [facility] [employer]; TECHNIQUE: FL guided pain mgmt statistic, multiple fluoroscopic images provided for procedure. Total fluoroscopy time: 1.38 minutes Total submitted images to PACS: 3 DAP: Not reported mGym2 Gycm2 uGym2 cGycm2 or equivalent. FINDINGS: Fluoroscopic images during injection for pain management demonstrate multilevel degeneration changes throughout the spine. No evidence for fracture. No acute process identified. IMPRESSION: 1. No evidence for intraoperative complication. 2. Please see the operative/procedural note for further details. [facility], , 12/17/2023 6:17 PM
== END 2023-11-07 14:55 ==
LOC: ORPAIN 12:08
PROVIDERS: ATTEND Pain Medicine Interventional Pain Medicine
DX: M51.16 Intervertebral disc disorders with radiculopathy, lumbar region (principal); E11.9 Type 2 diabetes mellitus without complications; Z79.84 Long term (current) use of oral hypoglycemic drugs; I10 Essential (primary) hypertension; Z88.0 Allergy status to penicillin; Z88.1 Allergy status to other antibiotic agents; Z79.82 Long term (current) use of aspirin; Z79.02 Long term (current) use of antithrombotics/antiplatelets
CPT/HCPCS: 64483

== ENCOUNTER → 2023-12-26 | Outpatient (CLI) | payer MEDICARE ==
--- NOTE | 2023-12-27 09:15 | MR ---
EXAMINATION TYPE: MR knee LT wo con DATE OF EXAM: 12/26/2023 COMPARISON: None HISTORY: left knee pain. TECHNIQUE: Multiplanar, multisequence imaging of the left knee is performed without IV contrast. Brian on motion limits portions of the study. FINDINGS: MEDIAL MENISCUS: Anterior and posterior horns are intact without tear. Myxoid degeneration posterior horn medial meniscus. LATERAL MENISCUS: Anterior and posterior horns are intact without tear. CRUCIATE LIGAMENTS: The anterior and posterior cruciate ligaments are intact and unremarkable. COLLATERAL LIGAMENTS: The medial collateral ligament and lateral collateral ligament complex are inta ct and unremarkable. EXTENSOR MECHANISM: Visualized quadriceps and patellar tendons are intact. EFFUSION: No significant suprapatellar joint effusion. POPLITEAL CYST: No popliteal/farias cyst. TRICOMPARTMENT SPACES: Intact CARTILAGE: Intact BONE MARROW SIGNAL: Moderate bone marrow edema involving the tibial plateau with curvilinear nondispl aced fracture seen posteriorly. OTHER: No additional significant abnormality is appreciated. IMPRESSION: 1. Moderate bone marrow edema involving the tibial plateau with curvilinear nondisplaced fracture se en posteriorly. [facility], , 12/27/2023 9:13 AM
== END | disposition home or self-care (01) ==
LOC: RADMRIMAIN 12:07
PROVIDERS: ATTEND Orthopaedic Surgery
DX: M25.562 Pain in left knee

== ENCOUNTER 2024-02-27 13:18 | Day surgery (SDC) | payer MEDICARE ==
[2024-02-25 12:01] VITALS: BMI 37.9
--- NOTE | 2024-02-27 01:47 | HP ---
HISTORY AND PHYSICAL DATE OF SURGERY: 02/27/2024. HISTORY OF PRESENT ILLNESS: Akiko Valencia is a 63-year-old patient, seen with progressive left knee pain. We discussed options regarding treatment. She elected to proceed with left knee arthroscopy. Consent was obtained. Medical clearance provided by Dr. Byers. Vascular clearance by Dr. Erazo. PAST MEDICAL HISTORY: Hypertension, hyperlipidemia, and cardiovascular disease. PAST SURGICAL HISTORY: Noncontributory. DAILY MEDICATIONS: 1. Lisinopril. 2. Metformin. 3. Omeprazole. 4. Plavix. 5. Pravastatin. ALLERGIES: Amoxicillin, Cipro, and penicillin. SOCIAL HISTORY: The patient denies tobacco use. PHYSICAL EVALUATION OF THE LEFT KNEE: Range of motion is 0 to 130 degrees. There is a mild effusion. Tenderness along the medial and lateral joint lines. Positive medial Lorenzo's. Ligaments stable. Hip rotation without pain. Distal neurovascular exam intact. IMAGING DATA: Left knee radiographs failed to reveal any osseous abnormality. Left knee MRI revealed a nondisplaced tibial plateau fracture as well as an abnormal signal involving the medial meniscus. IMPRESSION: 1. Internal derangement of left knee with medial meniscal tear. 2. History of left knee nondisplaced lateral tibial plateau fracture. 3. Hypertension. 4. Hyperlipidemia. 5. Tyl-mkcoogi-olbbnegoz diabetes. 6. History of vascular disease. PLAN: Left knee arthroscopy with partial medial meniscectomy and debridement. MMODL / ZORAIDAN: [id number] /
[~2024-02-27 13:18] MED LIST changes: +HYDROmorphone 0.5 MG/0.5 ML SYRINGE IVP PRN; -IOPAMIDOL M200 10 ML VIAL ONE; -LACTATED RINGERS 1,000 ML IV SCH; +droPERidol 5 MG/2 ML VIAL IVP ONE; -methylPREDNISolone ACETATE 40 MG/ML 1 ML VIAL ONE
[2024-02-27 14:47] LABS: Glucose,Whole Blood 108 mg/dL (70-110)
[2024-02-27] MEDS: ONDANSETRON 4 MG/2 ML VIAL IVP STA (14:59)
[2024-02-27] MEDS: DEXAMETHASONE SOD PHOSPHATE 4 MG/ML 1 ML VIAL IV ONE (15:01)
[2024-02-27] MEDS: LACTATED RINGERS 1,000 ML IV SCH (15:01)
[2024-02-27] MEDS: IV FLUID CONTINUATION 1,000 ML IV ONE (15:06)
[2024-02-27] MEDS ORDERED: SUCCINYLCHOLINE CHLORIDE 200 MG/10 ML VIAL IV ONE (15:42)
[2024-02-27] MEDS ORDERED: fentaNYL (PF) 50 MCG/ML 2 ML AMP ONE (15:42)
[2024-02-27] MEDS ORDERED: KETOROLAC 15 MG/ML 1 ML VIAL ONE (15:42)
[2024-02-27] MEDS ORDERED: PROPOFOL 10 MG/ML 20 ML VIAL IV ONE (15:42)
[2024-02-27] MEDS ORDERED: LIDOCAINE 4% LTA KIT (4 ML) TOPICAL ONE (15:42)
[2024-02-27] MEDS ORDERED: MIDAZOLAM 2 MG/2 ML VIAL ONE (15:42)
[2024-02-27] MEDS ORDERED: LIDOCAINE 1% INJ 10MG/ML (20 ML MDV) ONE (15:42)
[2024-02-27] MEDS: BUPIVACAINE (PF) 0.25% 30 ML VIAL SQ ONE ×2 (16:10→16:21)
--- NOTE | 2024-02-27 16:40 | P.OP ---
Date of Procedure: 02/27/24 Preoperative Diagnosis: Internal derangement left knee Postoperative Diagnosis: 1. Tear medial and lateral meniscus left knee 2. Grade IV chondromalacia medial femoral condyle left knee 3. Reactive synovitis medial, lateral and suprapatellar compartments left knee Procedure(s) Performed: 1. Arthroscopic partial medial and lateral meniscectomy left knee 2. Arthroscopic microfracture medial femoral condyle left knee 3. Arthroscopic partial synovectomy medial, lateral and suprapatellar compartments left knee 4. Arthroscopic chondroplasty medial femoral condyle left knee Anesthesia: DELMIA, local Surgeon: Jayme Lopez Estimated Blood Loss (ml): 8 Pathology: none sent Condition: stable Disposition: PACU Indications for Procedure: 63-year-old patient seen with progressive left knee pain. After having treatment options discussed she elected to proceed with arthroscopy. Operative Findings: See description of procedure Description of Procedure: Patient was taken to the operative suite. Patient underwent a general anesthetic by the department of anesthesia. Patient was given preoperative antibiotics. The left lower extremity was placed in a well-padded arthroscopic leg myrick. The left leg was prepped and draped in the normal sterile orthopedic fashion. A lateral parapatellar and suprapatellar incision was made. Trochars were inserted. Arthroscopy was initiated. Suprapatellar pouch revealed diffuse thick reactive synovitis. The patellofemoral joint appeared articular congruently. There was grade II/III chondromalacia of the patellofemoral joint without any significant osteochondral tears present. The scope was guided into the medial gutter. No loose bodies or plica were identified the scope was then guided into the medial compartment. A medial parapatellar incision was made. Trocar inserted followed by probe. There was a complex tear involving the posterior medial meniscus. There was an area of grade III/IV chondromalacia medial femoral condyle with osteochondral flap tears present. There was thick reactive synovitis anteriorly. I performed a partial medial meniscectomy getting down to stable meniscal tissue. I performed a chondroplasty of the medial femoral condyle getting down to stable osteochondral tissue. I performed a partial synovectomy decompressing the reactive synovitis. I did note an area of grade IV chondromalacia medial femoral condyle/exposed bone. I reduced a microfracture awl and I performed a microfracture to the area of exposed bone penetrating the bone with resultant bleeding at the microfracture site. The residual meniscus was probed and was found to be stable. The residual osteochondral surface was stable. There was good decompression of the synovitis. Scope and probe were then guided into the intercondylar notch. Cruciates were identified, probed and found to be stable. The scope and probe were then guided into lateral compartment. There was a radial tear mid body lateral meniscus. There was grade I chondromalacia of the lateral compartment without tears. There was some thick reactive synovitis anteriorly. I performed a partial lateral meniscectomy getting down to stable meniscal tissue. I performed a partial synovectomy decompressing the reactive synovitis. The residual meniscus was probed and was found to be stable. There was good decompression of the synovitis. The scope was in guided back into the suprapatellar compartment. I reduced a motorized shaver into the suprapatellar compartment. I debrided some piecemeal fragments of meniscus that I encountered. I performed a partial synovectomy. The shaver was removed. There was good decompression of the synovitis. I took one more look around the entire knee, no residual debris. Instruments were now removed from the joint. The joint was infiltrated with .25% Marcaine. Steri-Strips were applied to the portal sites. Sterile dressings were applied. The patient was placed into a BAILEY hose. No tourniquet was utilized. The patient was awakened, transferred to a bed and taken to recovery stable satisfactory condition.
[2024-02-27 17:12] VITALS: TEMP 97
[2024-02-27 17:31] LABS: Glucose,Whole Blood 132 mg/dL (70-110)
[2024-02-27 17:52] VITALS: BP 131/65; PULSE 66; RESP 18
== END 2024-02-27 18:10 | disposition home or self-care (01) ==
LOC: OR 13:18
PROVIDERS: ATTEND Orthopaedic Surgery
DX: S83.232A Complex tear of medial meniscus, current injury, left knee, initial encounter (principal); S83.282A Other tear of lateral meniscus, current injury, left knee, initial encounter; M94.262 Chondromalacia, left knee; M65.862 Other synovitis and tenosynovitis, left lower leg; I10 Essential (primary) hypertension; I25.10 Atherosclerotic heart disease of native coronary artery without angina pectoris; E11.51 Type 2 diabetes mellitus with diabetic peripheral angiopathy without gangrene; E78.5 Hyperlipidemia, unspecified; I69.351 Hemiplegia and hemiparesis following cerebral infarction affecting right dominant side; Z79.02 Long term (current) use of antithrombotics/antiplatelets; Z79.82 Long term (current) use of aspirin; Z79.85 Long-term (current) use of injectable non-insulin antidiabetic drugs; Z79.84 Long term (current) use of oral hypoglycemic drugs; Z79.899 Other long term (current) drug therapy; Z88.0 Allergy status to penicillin; Z88.1 Allergy status to other antibiotic agents; X58.XXXA Exposure to other specified factors, initial encounter
CPT/HCPCS: 29880; 29879; 29876; J1100; J0690; J2405; J0665

== ENCOUNTER → 2024-07-01 | Outpatient (CLI) | payer MEDICARE ==
[2024-07-01 16:18] VITALS: BP 113/66; PULSE 111; RESP 19; TEMP 98.3
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
== END ==
LOC: PNWHC3 14:22
PROVIDERS: ATTEND Specialist
DX: M47.26 Other spondylosis with radiculopathy, lumbar region (principal); Z88.0 Allergy status to penicillin; Z88.1 Allergy status to other antibiotic agents; Z87.891 Personal history of nicotine dependence
CPT/HCPCS: 99212

== ENCOUNTER 2024-07-21 10:07 | Day surgery (SDC) | payer MEDICARE ==
[2024-07-17 14:42] VITALS: BMI 38.0
[~2024-07-21 10:07] MED LIST changes: -HYDROmorphone 0.5 MG/0.5 ML SYRINGE IVP PRN; +LACTATED RINGERS 1,000 ML IV SCH; -droPERidol 5 MG/2 ML VIAL IVP ONE
[2024-07-21 10:36] VITALS: TEMP 96.4
[2024-07-21 10:39] LABS: Glucose,Whole Blood 117 mg/dL (70-110)
[2024-07-21] MEDS ORDERED: methylPREDNISolone ACETATE 40 MG/ML 1 ML VIAL ONE (10:57)
[2024-07-21] MEDS ORDERED: IOPAMIDOL M200 10 ML VIAL ONE (10:57)
--- NOTE | 2024-07-21 11:09 | P.PCN ---
Date of Procedure: 07/21/24 Procedure(s) Performed: PREOPERATIVE DIAGNOSIS: 1-Lumbar radiculopathy . 2-lumbar spondylosis with lumbar facet arthropathy without myelopathy POSTOPERATIVE DIAGNOSIS: 1-lumbar radiculopathy. 2-lumbar spondylosis with facet arthropathy without myelopathy PROCEDURE 1. Transforaminal epidural steroid injection under fluoroscopic guidance at bilateral L4-5 level. (Fluoroscopy images stored on file in the radiology Department ) 2. Lumbar epidurogram . ANESTHESIA: Local with 1% lidocaine 3 ml. EBL: Minimal PROCEDURE INDICATION: The patient with low back pain and radiculopathy symptoms unresponsive to conservative treatment. PROCEDURE DESCRIPTION / TECHNIQUE: The patient was seen and identified in the preoperative area. Risks, benefits, complications, and alternatives were discussed with the patient. The patient agreed to proceed with the procedure and signed the consent. IV was started, and vital signs were stable. Patient was taken to the OR and time out was completed. The patient was placed in the prone position on procedure table and a pillow was placed under the abdomen to reduce lumbar lordosis. The lumbosacral area was prepped and draped in the usual sterile fashion. Critical pause was taken. Vital signs were closely monitored during the procedure. Using oblique fluoroscopy, the chin of the ``Bong dog at right L4-5 level was identified, and the skin and deeper tissues just below was localized with 1% lidocaine. Subsequently, a 22-gauge 5-inch spinal needle was advanced under a tunneled view fluoroscopic guidance just underneath the chin of the ``Bong dog at the right L4-5 Under lateral fluoroscopy, the needle was then advanced to the posterior border of the interforaminal space. After negative aspiration of CSF and blood and with no paresthesias, 1 mL Isovue 200 contrast dye was injected excellent epidurogram and outlining of the nerve root Subsequently, 3 mL of block solution containing 20 mg Depo-Medrol and 2 mL of 0.9% normal saline PF was injected. Needle was removed and the same procedure was repeated at the left L4-5 level. At the end of the procedure, skin was cleansed, and bandages were applied. COMPLICATIONS:none DISPOSITION / PLANS: The patient was placed in a supine position and transferred to the recovery area in a stable condition for observation. There was no evidence of lower extremity motor or sensory deficit after the procedure. Patient was discharged from the recovery room after meeting discharge criteria. Home discharge instructions were given to the patient by the staff. The patient was reexamined prior to discharge.
[2024-07-21 11:26] VITALS: PULSE 79; RESP 16
--- NOTE | 2024-07-21 11:28 | FL ---
EXAMINATION TYPE: FL guided pain mgmt statistic Intraoperative/procedural fluoroscopic services were provided. CLINICAL INDICATION:Female, 63 years old with history of TRANSFORAMINAL; , [facility] FINDINGS: Fluoroscopic imaging demonstrating lumbar bilateral transforaminal joint steroid injection. No radiog raphic evidence for complication. Total fluoroscopy time is 14.8 seconds. DAP: [id number] Please see the operative/procedural note for further details. [facility], , 07/21/2024 11:26 AM
[2024-07-21 11:30] VITALS: BP 110/73
== END 2024-07-21 11:43 | disposition home or self-care (01) ==
LOC: ORPAIN 10:07
PROVIDERS: ATTEND Specialist
DX: M47.26 Other spondylosis with radiculopathy, lumbar region (principal); Z88.0 Allergy status to penicillin; Z88.1 Allergy status to other antibiotic agents
CPT/HCPCS: 64483; Q9966; J1010